=== PATIENT | male | born 1950 ===

== ENCOUNTER 2017-11-14 15:43 | Inpatient (IN) | payer OTHER, MEDICARE, BC ==
[~2017-11-14] VITALS: Ht 177.8 cm; Wt 90.6 kg
[~2017-11-14 15:43] MED LIST: ACCUPRIL; ASPI81CH; CARV25; FURO20; LIPITOR; MECL25 PO; METF500 PO; MULVITMIND PO; PARO25 PO; PARO30 PO; QUIN10 PO; WARF5 PO
[2017-11-14 16:05] LABS: Calcium, Ionized (POC) 1.03 mmol/L (1.10-1.46); Chloride (POC) 108 mmol/L (98-108); Creatinine (POC) 1.1 mg/dL (0.8-1.3); Glucose (ISTAT POC) 131 mg/dL (70-99); Hemoglobin (POC) 14.3 g/dL (13.5-17.5); Potassium (POC) 3.7 mmol/L (3.5-5.5); Sodium (POC) 141 mmol/L (135-148); Total CO2 (POC) 18 mmol/L (21-32)
[2017-11-14 16:25] LABS: BASOPHILS ABSOLUTE AUTO 0.06 K/mm3 (0.00-0.23); BASOPHILS PERCENT AUTO 1 % (0-2); EOSINOPHILS ABSOLUTE AUTO 0.23 K/mm3 (0.00-0.68); EOSINOPHILS PERCENT AUTO 3 % (0-6); Hematocrit 41.5 % (37.0-53.0); Hemoglobin 14.6 g/dL (13.5-17.5); IMMATURE GRAN ABSOLUTE AUTO 0.01 K/mm3 (0.00-0.10); IMMATURE GRAN PERCENT AUTO 0 % (0-1); LYMPHOCYTES ABSOLUTE AUTO 2.73 K/mm3 (0.84-5.20); LYMPHOCYTES PERCENT AUTO 37 % (21-46); MONOCYTES ABSOLUTE AUTO 0.72 K/mm3 (0.16-1.47); MONOCYTES PERCENT AUTO 10 % (4-13); Mean Corpuscular HGB 30.2 pg (26.0-34.0); Mean Corpuscular HGB Conc 35.2 g/dL (31.5-36.5); Mean Corpuscular Volume 86 fL (80-100); Mean Platelet Volume 10.5 fL (9.1-12.4); NEUTROPHILS PERCENT AUTO 49 % (41-73); Platelet Count 238 K/mm3 (150-400); RDW Coefficient Variation 13.2 % (11.7-14.2); RDW Standard Deviation 41.5 fL (35.1-46.3); Red Blood Cell Count 4.84 M/mm3 (4.30-5.90); White Blood Cell Count 7.35 K/mm3 (4.00-11.30)
[2017-11-14 16:40] LABS: Alanine Aminotransfer (ALT/SGP 32 U/L (12-78); Albumin, Blood 4.1 g/dL (3.4-5.0); Albumin/Globulin Ratio 1.2 (0.8-1.8); Alk Phos 70 U/L (50-136); Anion Gap 13 mmol/L (6-16); Aspartate Aminotrans (AST/SGOT 25 U/L (12-37); Bilirubin, Total 0.4 mg/dL (0.1-1.0); Blood Urea Nitrogen 17 mg/dL (8-24); Bun/Creatinine Ratio 17.3 (12.0-20.0); CO2, Blood 19 mmol/L (21-32); Calcium, Blood 8.6 mg/dL (8.5-10.1); Chloride, Blood 109 mmol/L (98-108); Creatinine, Blood 0.98 mg/dL (0.60-1.20); Globulin, Blood 3.4 g/dL (2.2-4.0); Glomerular Filtration Rate >60 (60-); Glucose, Blood 127 mg/dL (70-99); Potassium, Blood 3.9 mmol/L (3.5-5.5); Sodium, Blood 141 mmol/L (136-145); Total Protein, Blood 7.5 g/dL (6.4-8.2); Troponin I <0.015 ng/mL (0.000-0.040)
[2017-11-14] MEDS ORDERED: [UNRECOGNIZED DRUG - CODE] PO (16:44)
[2017-11-14] MEDS ORDERED: [UNRECOGNIZED DRUG - CODE] PO (16:49)
[2017-11-14] MEDS ORDERED: [UNRECOGNIZED DRUG - CODE] PO (16:52)
[2017-11-14] MEDS ORDERED: ATOR20 PO (17:21)
[2017-11-14] MEDS ORDERED: CARV25 PO (17:21)
[2017-11-14] MEDS ORDERED: WARF5 PO (17:22)
[2017-11-14] MEDS ORDERED: ENTRESTO 24 MG1 EACH PO (17:23)
[2017-11-14 17:56] LABS: CPK Creatine Kinase 180 U/L (39-308)
[2017-11-14 17:57] LABS: Creatine Kinase MB 3.1 ng/mL (0.0-3.6); Creatine Kinase MB Index 1.7 (0.0-4.0)
[2017-11-14 17:58] LABS: Prothrombin Time Results 40.1 Sec (9.7-11.5)
[2017-11-14 18:30] LABS: International Normalized Ratio 4.22
[2017-11-14] MEDS ORDERED: OMEG1CAP30 PO (19:39)
[2017-11-15 04:32] LABS: BASOPHILS ABSOLUTE AUTO 0.04 K/mm3 (0.00-0.23); BASOPHILS PERCENT AUTO 1 % (0-2); EOSINOPHILS PERCENT AUTO 3 % (0-6); Hematocrit 37.6 % (37.0-53.0); Hemoglobin 12.9 g/dL (13.5-17.5); IMMATURE GRAN ABSOLUTE AUTO 0.02 K/mm3 (0.00-0.10); IMMATURE GRAN PERCENT AUTO 0 % (0-1); LYMPHOCYTES PERCENT AUTO 31 % (21-46); MONOCYTES ABSOLUTE AUTO 0.63 K/mm3 (0.16-1.47); MONOCYTES PERCENT AUTO 10 % (4-13); Mean Corpuscular HGB 30.2 pg (26.0-34.0); Mean Corpuscular HGB Conc 34.3 g/dL (31.5-36.5); Mean Corpuscular Volume 88 fL (80-100); Mean Platelet Volume 10.3 fL (9.1-12.4); NEUTROPHILS ABSOLUTE AUTO 3.59 K/mm3 (1.96-9.15); NEUTROPHILS PERCENT AUTO 55 % (41-73); Platelet Count 160 K/mm3 (150-400); RDW Coefficient Variation 13.7 % (11.7-14.2); RDW Standard Deviation 44.3 fL (35.1-46.3); Red Blood Cell Count 4.27 M/mm3 (4.30-5.90); White Blood Cell Count 6.48 K/mm3 (4.00-11.30)
[2017-11-15 04:44] LABS: International Normalized Ratio 3.11
[2017-11-15 04:51] LABS: Alanine Aminotransfer (ALT/SGP 24 U/L (12-78); Albumin, Blood 3.3 g/dL (3.4-5.0); Albumin/Globulin Ratio 1.1 (0.8-1.8); Alk Phos 58 U/L (50-136); Anion Gap 6 mmol/L (6-16); Aspartate Aminotrans (AST/SGOT 18 U/L (12-37); Bilirubin, Total 0.4 mg/dL (0.1-1.0); Blood Urea Nitrogen 15 mg/dL (8-24); Bun/Creatinine Ratio 16.8 (12.0-20.0); CO2, Blood 26 mmol/L (21-32); Calcium, Blood 7.7 mg/dL (8.5-10.1); Chloride, Blood 112 mmol/L (98-108); Cholesterol 109 mg/dL (50-200); Creatine Kinase MB 3.8 ng/mL (0.0-3.6); Creatine Kinase MB Index 3.1 (0.0-4.0); Creatinine, Blood 0.89 mg/dL (0.60-1.20); Globulin, Blood 2.9 g/dL (2.2-4.0); Glomerular Filtration Rate >60 (60-); Glucose, Blood 102 mg/dL (70-99); Potassium, Blood 3.5 mmol/L (3.5-5.5); Sodium, Blood 144 mmol/L (136-145); Total Protein, Blood 6.2 g/dL (6.4-8.2); Triglycerides 112 mg/dL (30-160); Troponin I 0.261 ng/mL (0.000-0.040)
[2017-11-16 04:08] LABS: Hematocrit 42.6 % (37.0-53.0); Hemoglobin 14.7 g/dL (13.5-17.5); Mean Corpuscular HGB Conc 34.5 g/dL (31.5-36.5); Mean Corpuscular Volume 87 fL (80-100); Mean Platelet Volume 10.5 fL (9.1-12.4); Platelet Count 188 K/mm3 (150-400); RDW Coefficient Variation 13.6 % (11.7-14.2); White Blood Cell Count 7.16 K/mm3 (4.00-11.30)
[2017-11-16 04:21] LABS: International Normalized Ratio 2.12; Prothrombin Time Results 20.9 Sec (9.7-11.5)
[2017-11-16 04:25] LABS: Anion Gap 9 mmol/L (6-16); Blood Urea Nitrogen 13 mg/dL (8-24); Bun/Creatinine Ratio 16.2 (12.0-20.0); CO2, Blood 25 mmol/L (21-32); Calcium, Blood 8.4 mg/dL (8.5-10.1); Chloride, Blood 111 mmol/L (98-108); Glomerular Filtration Rate >60 (60-); Glucose, Blood 101 mg/dL (70-99); Magnesium, Blood 2.2 mg/dL (1.6-2.4); Potassium, Blood 3.7 mmol/L (3.5-5.5); Sodium, Blood 145 mmol/L (136-145)
[2017-11-17 04:50] LABS: BASOPHILS ABSOLUTE AUTO 0.06 K/mm3 (0.00-0.23); BASOPHILS PERCENT AUTO 1 % (0-2); EOSINOPHILS ABSOLUTE AUTO 0.27 K/mm3 (0.00-0.68); EOSINOPHILS PERCENT AUTO 4 % (0-6); Hematocrit 44.9 % (37.0-53.0); Hemoglobin 15.2 g/dL (13.5-17.5); IMMATURE GRAN ABSOLUTE AUTO 0.01 K/mm3 (0.00-0.10); IMMATURE GRAN PERCENT AUTO 0 % (0-1); LYMPHOCYTES ABSOLUTE AUTO 2.04 K/mm3 (0.84-5.20); LYMPHOCYTES PERCENT AUTO 28 % (21-46); MONOCYTES ABSOLUTE AUTO 0.87 K/mm3 (0.16-1.47); MONOCYTES PERCENT AUTO 12 % (4-13); Mean Corpuscular HGB 29.5 pg (26.0-34.0); Mean Corpuscular HGB Conc 33.9 g/dL (31.5-36.5); Mean Corpuscular Volume 87 fL (80-100); Mean Platelet Volume 10.5 fL (9.1-12.4); NEUTROPHILS ABSOLUTE AUTO 4.06 K/mm3 (1.96-9.15); NEUTROPHILS PERCENT AUTO 56 % (41-73); Platelet Count 203 K/mm3 (150-400); RDW Coefficient Variation 13.5 % (11.7-14.2); RDW Standard Deviation 42.7 fL (35.1-46.3); Red Blood Cell Count 5.16 M/mm3 (4.30-5.90); White Blood Cell Count 7.31 K/mm3 (4.00-11.30)
[2017-11-17 05:01] LABS: International Normalized Ratio 1.32; Prothrombin Time Results 13.4 Sec (9.7-11.5)
[2017-11-17 05:05] LABS: Anion Gap 7 mmol/L (6-16); Blood Urea Nitrogen 19 mg/dL (8-24); Bun/Creatinine Ratio 20.7 (12.0-20.0); CO2, Blood 28 mmol/L (21-32); Calcium, Blood 8.7 mg/dL (8.5-10.1); Chloride, Blood 107 mmol/L (98-108); Creatinine, Blood 0.92 mg/dL (0.60-1.20); Glomerular Filtration Rate >60 (60-); Glucose, Blood 101 mg/dL (70-99); Magnesium, Blood 2.4 mg/dL (1.6-2.4); Potassium, Blood 3.8 mmol/L (3.5-5.5); Sodium, Blood 142 mmol/L (136-145)
== END 2017-11-17 15:10 | disposition short-term general hospital (02) | DRG 287 ==
LOC: ER 15:43 → ICUE 16:50 → ICUW 16:50 → ICUE 18:19 → ICUW 11-16 16:56
PROVIDERS: Emergency Medicine; Family Medicine; Internal Medicine Cardiovascular Disease
PROC: 5A2204Z Restoration of Cardiac Rhythm, Single (ICD-10-PCS; 2017-11-14)
PROC: B2111ZZ Fluoroscopy of Multiple Coronary Arteries using Low Osmolar Contrast (ICD-10-PCS; principal; 2017-11-17)
DX: I47.2 Ventricular tachycardia (principal); I50.30 Unspecified diastolic (congestive) heart failure; I25.10 Atherosclerotic heart disease of native coronary artery without angina pectoris; Z86.73 Personal history of transient ischemic attack (TIA), and cerebral infarction without residual deficits; Z87.898 Personal history of other specified conditions; Z79.01 Long term (current) use of anticoagulants; I25.5 Ischemic cardiomyopathy; R79.1 Abnormal coagulation profile; E78.5 Hyperlipidemia, unspecified; E11.9 Type 2 diabetes mellitus without complications; R00.1 Bradycardia, unspecified; I10 Essential (primary) hypertension; I34.0 Nonrheumatic mitral (valve) insufficiency; Z79.84 Long term (current) use of oral hypoglycemic drugs
CPT/HCPCS: 36415; 80047; 80048; 80053; 82465; 82550; 82553; 82947; 83036; 83735; 83880; 84478; 84484; 85014; 85025; 85027; 85610; 86850; 86900; 86901; 90686; 92960; 93005; 93010; 93308; 93321; 93454; 96360; 96361; 99152; 99153; 99285-25; C1769; C1894; C9113; G0008; J0461; J1644; J2060; J2250; J2405; J3010; J7030; Q9967

== ENCOUNTER 2018-04-29 21:32 | Emergency (ER) | payer MEDICARE ==
[~2018-04-29] VITALS: Ht 182.9 cm; Wt 104.3 kg
[~2018-04-29 21:32] MED LIST changes: +ATOR20 PO; +CARV25 PO; +ENTRESTO 24 MG1 EACH PO; +OMEG1CAP30 PO; +[UNRECOGNIZED DRUG - CODE] PO; +[UNRECOGNIZED DRUG - CODE] PO; +[UNRECOGNIZED DRUG - CODE] PO
--- NOTE | 2018-04-29 23:58 | NUR ---
Call Back. Pt's spouse, daughter and ALBERTO were present in the room. Room was provided for family to reflect on the pt. Daughter requests a blessing for the pt. Verbal prayer was offered on behalf of the pt and family. Family verbalized gratitude for the intervention. They appear to be grieving appropriately at this time.
== END 2018-04-30 01:00 ==
LOC: ER 21:32
DX: I46.9 Cardiac arrest, cause unspecified (principal); I11.0 Hypertensive heart disease with heart failure; I50.9 Heart failure, unspecified; E78.5 Hyperlipidemia, unspecified; E11.9 Type 2 diabetes mellitus without complications; Z86.73 Personal history of transient ischemic attack (TIA), and cerebral infarction without residual deficits; Z79.899 Other long term (current) drug therapy; Z79.01 Long term (current) use of anticoagulants; Z79.84 Long term (current) use of oral hypoglycemic drugs; Z79.82 Long term (current) use of aspirin
CPT/HCPCS: 31500; 31720; 94002; 96374; 99285-25